=== PATIENT | female | born 1990 | race African-American/Black ===

== ENCOUNTER 2020-07-11 15:50 | Emergency (ER) | payer OTHER ==
[~2020-07-11] VITALS: Ht 175.3 cm; Wt 64.9 kg
[2020-07-11] MEDS ORDERED: IBU600 MG PO (16:09)
[2020-07-11] MEDS ORDERED: CLEOCIN HCL300 MG PO (16:09)
== END 2020-07-11 16:22 | disposition home or self-care (01) ==
LOC: ER 15:50
DX: K02.7 Dental root caries (principal); Z88.0 Allergy status to penicillin

== ENCOUNTER 2020-11-08 07:17 | Emergency (ER) | payer OTHER ==
[~2020-11-08] VITALS: Ht 175.3 cm; Wt 79.4 kg
[~2020-11-08 07:17] MED LIST: CLEOCIN HCL300 MG PO; IBU600 MG PO
[2020-11-08 07:49] LABS: URINE BILIRUBIN NEGATIVE (Negative); URINE BLOOD NEGATIVE (Negative); URINE CLARITY CLEAR; URINE COLOR YELLOW; URINE GLUCOSE-RANDOM* NEGATIVE (Negative); URINE KETONES TRACE (Negative); URINE LEUKOCYTES-REFLEX NEGATIVE (Negative); URINE NITRITE-REFLEX NEGATIVE (Negative); URINE PROTEIN (DIPSTICK) NEGATIVE (Negative); URINE SPECIFIC GRAVITY >= 1.030 (1.005-1.035)
[2020-11-08] MEDS ORDERED: INDOMETHACIN 5050 M1 PO (07:53)
[2020-11-08 08:19] LABS: ABSOLUTE NEUTROPHILS 2.8 thou/uL (1.4-8.2); BASOPHILS 0.8 % (0.0-2.0); EOSINOPHILS 1.4 % (0.0-3.0); HEMATOCRIT 35.5 % (37.0-47.0); HEMOGLOBIN 11.6 gm/dL (12.0-15.0); LYMPHOCYTES 42.9 % (24.0-44.0); MCH 30.2 pg (26.0-34.0); MCHC 32.8 g/dL (28.0-37.0); MCV 92.1 fL (80.0-100.0); MONOCYTES 9.3 % (1.0-8.0); PLATELET COUNT 224 thou/uL (150-400); POLYS 45.6 % (36.0-66.0); RBC 3.86 mil/uL (4.20-5.00); RDW 14.1 % (10.5-14.5); WBC 6.1 thou/uL (4.0-11.0)
[2020-11-08 08:32] LABS: CALCIUM 8.6 mg/dL (8.5-10.1); CREATININE 0.7 mg/dL (0.6-1.0); POTASSIUM 3.4 mmol/L (3.5-5.1)
[2020-11-08 08:38] LABS: ALBUMIN 3.8 g/dL (3.4-5.0); TOTAL BILIRUBIN 0.7 mg/dL (0.2-1.0); TOTAL PROTEIN 7.1 g/dL (6.4-8.2)
[2020-11-08] MEDS ORDERED: PEPCID40 MG PO (09:21)
[2020-11-08 09:28] VITALS: BP 117/78
== END 2020-11-08 09:30 | disposition home or self-care (01) ==
LOC: ER 07:17
PROVIDERS: Emergency Medicine
DX: K29.70 Gastritis, unspecified, without bleeding (principal); Z79.899 Other long term (current) drug therapy; Z88.0 Allergy status to penicillin

== ENCOUNTER 2021-02-05 07:59 | Emergency (ER) | payer OTHER ==
[~2021-02-05] VITALS: Ht 175.3 cm; Wt 80.7 kg
[~2021-02-05 07:59] MED LIST changes: +INDOMETHACIN 5050 M1 PO; +PEPCID40 MG PO
[2021-02-05] MEDS ORDERED: BACTRIM DS TAB1 EACH PO (08:25)
[2021-02-05] MEDS ORDERED: MACROBID 100 M100 M2 PO (08:38)
[2021-02-05] MEDS ORDERED: ALLEGRA ALLERG180 MG PO (08:38)
[2021-02-05] MEDS ORDERED: PREDNISONE 20 M20 MG PO (08:38)
[2021-02-05] MEDS ORDERED: BENADRYL25 MG PO (08:39)
[2021-02-05 09:11] VITALS: BP 113/76
== END 2021-02-05 09:12 | disposition home or self-care (01) ==
LOC: ER 07:59
DX: L50.8 Other urticaria (principal); T36.8X5A Adverse effect of other systemic antibiotics, initial encounter; Z88.0 Allergy status to penicillin; Z79.899 Other long term (current) drug therapy; Y92.89 Other specified places as the place of occurrence of the external cause

== ENCOUNTER 2021-02-06 12:43 | Emergency (ER) | payer OTHER ==
[~2021-02-06] VITALS: Ht 175.3 cm; Wt 58.1 kg
[~2021-02-06 12:43] MED LIST changes: +ALLEGRA ALLERG180 MG PO; +BACTRIM DS TAB1 EACH PO; +BENADRYL25 MG PO; +MACROBID 100 M100 M2 PO; +PREDNISONE 20 M20 MG PO
[2021-02-06 16:43] VITALS: BP 107/51
== END 2021-02-06 16:43 | disposition home or self-care (01) ==
LOC: ER 12:43
DX: T78.40XA Allergy, unspecified, initial encounter (principal); Z88.0 Allergy status to penicillin; X58.XXXA Exposure to other specified factors, initial encounter

== ENCOUNTER 2021-02-11 11:11 | Emergency (ER) | payer OTHER ==
[~2021-02-11] VITALS: Ht 175.3 cm; Wt 80.7 kg
[2021-02-11 11:38] VITALS: BP 122/73
[2021-02-11] MEDS ORDERED: PREDNISONE 20 M20 MG PO (11:41)
== END 2021-02-11 11:45 | disposition home or self-care (01) ==
LOC: ER 11:11
DX: L50.9 Urticaria, unspecified (principal); Z88.0 Allergy status to penicillin; Z88.1 Allergy status to other antibiotic agents; Z88.2 Allergy status to sulfonamides

== ENCOUNTER 2021-02-22 13:02 | Emergency (ER) | payer OTHER ==
[~2021-02-22] VITALS: Ht 175.3 cm; Wt 79.4 kg
[2021-02-22] MEDS ORDERED: MEDROLDOSEPACK PO (14:46)
[2021-02-22 15:02] VITALS: BP 124/79
== END 2021-02-22 15:02 | disposition home or self-care (01) ==
LOC: ER 13:02
DX: L50.9 Urticaria, unspecified (principal); Z79.52 Long term (current) use of systemic steroids; Z79.899 Other long term (current) drug therapy; Z88.0 Allergy status to penicillin; Z88.2 Allergy status to sulfonamides

== ENCOUNTER 2021-04-23 00:16 | Emergency (ER) | payer OTHER ==
[~2021-04-23] VITALS: Ht 175.3 cm; Wt 80.7 kg
[~2021-04-23 00:16] MED LIST changes: +MEDROLDOSEPACK PO
[2021-04-23 00:17] VITALS: BP 133/82
[2021-04-23] MEDS ORDERED: FAMOTIDINE 10 M10 MG PO (00:25)
[2021-04-23] MEDS ORDERED: CETIRIZINE1 MG/1 ML PO (00:26)
[2021-04-23] MEDS ORDERED: HYDROXYZIN10 MG/5 ML PO (00:27)
[2021-04-23] MEDS ORDERED: CHILDREN'S ZYRT10 M1 PO (00:27)
[2021-04-23] MEDS ORDERED: MONTELUKAST SODI4 M1 PO (00:28)
[2021-04-23] MEDS ORDERED: PREDNISONE 10 M10 MG PO (00:43)
== END 2021-04-23 00:47 | disposition home or self-care (01) ==
LOC: ER 00:16
DX: L50.8 Other urticaria (principal); Z79.899 Other long term (current) drug therapy; Z88.8 Allergy status to other drugs, medicaments and biological substances; Z88.0 Allergy status to penicillin; Z88.2 Allergy status to sulfonamides

== ENCOUNTER 2021-08-11 21:25 | Emergency (ER) | payer BC ==
[~2021-08-11] VITALS: Ht 175.3 cm; Wt 80.7 kg
[~2021-08-11 21:25] MED LIST changes: +CETIRIZINE1 MG/1 ML PO; +CHILDREN'S ZYRT10 M1 PO; +FAMOTIDINE 10 M10 MG PO; +HYDROXYZIN10 MG/5 ML PO; +MONTELUKAST SODI4 M1 PO; +PREDNISONE 10 M10 MG PO
[2021-08-11 21:34] VITALS: BP 109/73
[2021-08-11 22:17] LABS: ABSOLUTE NEUTROPHILS 4.3 thou/uL (1.4-8.2); BASOPHILS 0.4 % (0.0-2.0); EOSINOPHILS 0.8 % (0.0-3.0); HEMATOCRIT 39.4 % (37.0-47.0); HEMOGLOBIN 13.3 gm/dL (12.0-15.0); LYMPHOCYTES 16.3 % (24.0-44.0); MCH 31.2 pg (26.0-34.0); MCHC 33.8 g/dL (28.0-37.0); MCV 92.4 fL (80.0-100.0); MONOCYTES 6.9 % (1.0-8.0); PLATELET COUNT 177 thou/uL (150-400); POLYS 75.6 % (36.0-66.0); RBC 4.27 mil/uL (4.20-5.00); RDW 14.5 % (10.5-14.5); WBC 5.7 thou/uL (4.0-11.0)
[2021-08-11 22:20] LABS: CALCIUM 8.3 mg/dL (8.5-10.1); CREATININE 0.7 mg/dL (0.6-1.0); POTASSIUM 3.3 mmol/L (3.5-5.1)
[2021-08-11 22:27] LABS: ALBUMIN 3.6 g/dL (3.4-5.0); TOTAL BILIRUBIN 0.5 mg/dL (0.2-1.0); TOTAL PROTEIN 6.8 g/dL (6.4-8.2)
[2021-08-11] MEDS ORDERED: PREDNISONE 20 M20 MG PO (22:51)
== END 2021-08-11 23:35 | disposition home or self-care (01) ==
LOC: ER 21:25
PROVIDERS: Emergency Medicine
DX: R21 Rash and other nonspecific skin eruption (principal); M79.10 Myalgia, unspecified site; R11.10 Vomiting, unspecified; Z88.0 Allergy status to penicillin; Z88.1 Allergy status to other antibiotic agents; Z88.2 Allergy status to sulfonamides